=== PATIENT | female | born 1985 | race Caucasian/White ===

== ENCOUNTER 2024-03-06 13:20 | Emergency (ER) | payer OTHER, MEDICAID, SELFPAY ==
[2024-03-06 13:26] VITALS: BP 108/78; PULSE 98; RESP 16; TEMP 36.8; O2SAT 97; BMI 18.8
[2024-03-06 14:17] LABS: Add Manual Diff / Slide Review NO; Basophils Absolute Auto 100 /uL (0-100); Basophils Percent Auto 1.2 % (0-2); Eosinophils Absolute Auto 400 /uL (0-450); Eosinophils Percent Auto 3.3 % (2-4); Hematocrit 42.1 % (36-46); Hemoglobin 14.2 g/dL (12.0-16.0); Lymphocytes Absolute Auto 3200 /uL (1100-4500); Lymphocytes Percent Auto 26.1 % (25-40); Mean Corpuscular HGB Conc 33.7 % (30-36); Mean Corpuscular Hemoglobin 33.3 PG (26-34); Mean Corpuscular Volume 98.7 fL (80-100); Monocytes Absolute Auto 1400 /uL (0-900); Monocytes Percent Auto 11.4 % (3-14); Neutrophils Absolute Auto 7100 /uL (1500-7000); Platelet Count 246 X10^3/uL (150-400); Red Blood Cell Count 4.26 X10^6/uL (4.0-5.2); Red Cell Distribution Width 13.2 % (11.6-14.8); White Blood Cell Count 12.3 X10^3/uL (4.5-11.0)
[2024-03-06 14:22] LABS: Alanine Aminotransferase 13 IU/L (<35); Albumin 4.8 g/dL (3.5-5.0); Albumin Globulin Ratio 1.8 (1.0-2.8); Alkaline Phosphatase 53 U/L (38-126); Aspartate Aminotransferase 25 IU/L (14-36); Blood Urea Nitrogen 14 mg/dL (7-17); Calcium 8.7 mg/dL (8.4-10.2); Carbon Dioxide 22 mmol/L (22-32); Chloride 108 mmol/L (98-107); Estimated Glomerular Filt Rate > 60 mL/min (>60); Globulin 2.6 g/dL (1.7-4.1); Glucose 91 mg/dL (70-100); HEMOLYSIS 15 (0-50); Lipase 55 U/L (23-300); Sodium 137 mmol/L (137-145); Total Protein 7.4 g/dL (6.3-8.2)
--- NOTE | 2024-03-06 14:28 | DI.CT.S_ITS ---
PROCEDURE: CT ABDOMEN PELVIS W CON INDICATIONS: Right flank and lower abdominal pain TECHNIQUE: After the administration of intravenous contrast, axial sections acquired from the lung bases to the pubic symphysis. Coronal and sagittal reformats were performed. For radiation dose reduction, the following was used: automated exposure control, adjustment of mA and/or kV according to patient size. COMPARISON: None. FINDINGS: Image quality: Diagnostic. Lower Chest: No significant findings. ABDOMEN: Liver: No solid mass. Gallbladder: No radiopaque gallstones or wall thickening. Biliary ducts: No biliary dilation. Pancreas: No ductal dilation. Spleen: Size is within normal limits. Adrenal Glands: No adrenal nodules. Kidneys and Ureters: No hydronephrosis. No solid mass. No complex renal cystic lesion which requires follow up. Stomach and Bowel: Normal colonic caliber, without significant wall thickening. Peritoneum: No abnormal intraperitoneal fluid. No free air. Ventral Wall: No significant ventral hernia. Abdominal Nodes: No retroperitoneal or mesenteric adenopathy by size criteria. Vessels: Aorta and inferior vena cava are normal in size. Markedly dilated left gonadal vein and dilated right gonadal vein with bilateral gonadal vein reflux and extensive paraovarian and periuterine varicosities. PELVIS: Pelvic Organs: Extensive paraovarian and periuterine varicosities. Bilateral cystic adnexae. Partially collapsed hemorrhagic right ovarian cyst measuring 1.6 cm. . Bladder: No bladder wall thickening, accounting for underdistention. Pelvic Nodes: No enlarged lymph nodes. Miscellaneous: No inguinal hernias are seen. Bones: No aggressive osseous abnormality. IMPRESSION: 1. Impressive findings of dilated gonadal veins, , left greater than right with reflux giving rise to extensive paraovarian and periuterine varicosities. In certain individuals, this can be associated with the clinical syndrome of chronic pelvic venous congestion. 2. Partially collapsed right ovarian hemorrhagic cyst. 3. Normal enhancement of the kidneys. No hydronephrosis. Dictated by: Manuelito Nichole M.D. on 03/06/2024 at 15:41 Approved by: Manuelito Nichole M.D. on 03/06/2024 at 15:47
--- NOTE | 2024-03-06 14:41 | ED.ABDPAIN ---
HPI - Abdominal Pain <TEDDY Davey - Last Filed: 03/06/24 16:11> General Chief Complaint: Abdominal Pain Stated Complaint: R lower back pain, nausea Time Seen by Provider: 03/06/24 13:54 Source: patient Mode of arrival: Ambulatory History of Present Illness HPI narrative: 38-year-old female, daily smoker, presents to the emergency department with right flank pain x1 day. Patient is unsure if she injured her lower back but did notice the pain started yesterday. Mother is present in room and reports that patient had complained of lower abdominal cramping and pain that doubled her over. Patient reports that she has had many issues with abdominal pain over the years and was told that she has a ?noodle? on her appendix. Patient was told that if she ever has that type of pain again, needs to have her appendix removed. Patient also endorses that she was told to have her uterus removed several years ago, but declined. Patient denies any UTI like symptoms. Related Data Allergies Allergy/AdvReac Type Severity Reaction Status Date / Time acetaminophen [From Vicodin] AdvReac ITCHING Verified 03/06/24 13:31 hydrocodone [From Vicodin] AdvReac ITCHING Verified 03/06/24 13:31 Review of Systems <TEDDY Davey - Last Filed: 03/06/24 16:11> Review of Systems Narrative: Narrative: See HPI. GENERAL: Denies chills, fatigue, fever, sweats. HEENT: Denies sinus pain, ear pain, sore throat, difficulty swallowing, dizziness. RESPIRATORY: Denies dyspnea, cough, wheezing, sputum. CARDIOVASCULAR: Denies chest pain, palpitations, edema. GASTROINTESTINAL: Denies vomiting, diarrhea, constipation. Endorses nausea and lower abdominal pain. : Denies dysuria, frequency, incontinence, hematuria, urinary retention. Endorses right flank pain. MSK: Denies weakness, joint pain, or bony pain. SKIN: Denies rash, skin lesions, or pruritis. NEUROLOGIC: Denies weakness, dizziness, headache, numbness, confusion. PSYCHIATRIC: No concerning psychosocial issues. Patient History <TEDDY Davey - Last Filed: 03/06/24 16:11> Social History Smoking Status: Current every day smoker Smoking Status: Current every day smoker tobacco type: cigarettes Substance Use Type: marijuana Exam <TEDDY Davey - Last Filed: 03/06/24 16:11> Narrative Exam Narrative: Exam Narrative: GENERAL: This is a well-nourished, well-developed patient, in no acute distress. HEAD: Atraumatic. Normocephalic. EYES: Pupils equal round and reactive. Extraocular motions intact. No scleral icterus, injection or drainage. ENT: Nose without bleeding, purulent drainage. Airway patent. NECK: Trachea midline. No JVD or lymphadenopathy. Nontender. CARDIOVASCULAR: Regular rate and rhythm without murmurs, peripheral pulses intact, cap refill <2 sec. RESPIRATORY: Breath sounds equal and clear bilaterally. No wheezes, rales, or rhonchi. No cough. No increased respiratory effort. No accessory muscle use. GASTROINTESTINAL: Abdomen soft, mild lower abdominal tenderness, nondistended without guarding or rebound. No suprapubic pain. MSK: Moves all extremities. Normal range of motion, no clubbing or edema. Neurovascularly intact. NEURO: A&O x 3. SKIN: Warm, dry, no rashes or lesions noted. Initial Vital Signs Initial Vital Signs: Vital Signs Temperature 98.3 F 03/06/24 13:26 Pulse Rate 98 H 03/06/24 13:26 Respiratory Rate 16 03/06/24 13:26 Blood Pressure 108/78 03/06/24 13:26 Pulse Oximetry 97 03/06/24 13:26 Oxygen Delivery Method Room Air 03/06/24 13:26 Reviewed <Ishaan Rinaldi DO - Last Filed: 03/06/24 16:48> Initial Vital Signs Initial Vital Signs: Vital Signs Temperature 98.3 F 03/06/24 13:26 Pulse Rate 98 H 03/06/24 13:26 Respiratory Rate 16 03/06/24 13:26 Blood Pressure 108/78 03/06/24 13:26 Pulse Oximetry 97 03/06/24 13:26 Oxygen Delivery Method Room Air 03/06/24 13:26 Course <TEDDY Davey - Last Filed: 03/06/24 16:11> Orders Ordered: ED Orders 03/06/24 14:00 Complete Blood Count AUTO DIFF Stat Comprehensive Metabolic Panel Stat Lipase Stat 03/06/24 14:28 CT abdomen pelvis w con Stat Discontinued Medications Ondansetron HCl (Ondansetron 4 Mg/2 Ml Inj) 4 mg IV NOW PRN PRN Reason: Nausea And Vomiting Ondansetron HCl (Ondansetron 4 Mg Odt) 4 mg PO NOW PRN PRN Reason: Nausea And Vomiting Vital Signs Vital signs: Vital Signs - 8 hr 03/06/24 13:26 03/06/24 16:17 Temperature 98.3 F 98 F Pulse Rate 98 H 69 Respiratory Rate 16 16 Blood Pressure 108/78 108/56 L Pulse Oximetry 97 96 Oxygen Delivery Method Room Air Room Air <Ishaan Rinaldi DO - Last Filed: 03/06/24 16:48> Orders Ordered: ED Orders 03/06/24 14:00 Complete Blood Count AUTO DIFF Stat Comprehensive Metabolic Panel Stat Lipase Stat 03/06/24 14:28 CT abdomen pelvis w con Stat Discontinued Medications Ondansetron HCl (Ondansetron 4 Mg/2 Ml Inj) 4 mg IV NOW PRN PRN Reason: Nausea And Vomiting Ondansetron HCl (Ondansetron 4 Mg Odt) 4 mg PO NOW PRN PRN Reason: Nausea And Vomiting Vital Signs Vital signs: Vital Signs - 8 hr 03/06/24 13:26 03/06/24 16:17 Temperature 98.3 F 98 F Pulse Rate 98 H 69 Respiratory Rate 16 16 Blood Pressure 108/78 108/56 L Pulse Oximetry 97 96 Oxygen Delivery Method Room Air Room Air MDM - Abdominal Pain <TEDDY Davey - Last Filed: 03/06/24 16:11> Differential Diagnosis Differential diagnosis: Likely abdominal pain, acute appendicitis and calculus of kidney Lab Data 03/06/24 14:00 03/06/24 14:00 Labs: Lab Results 03/06/24 Range/Units 14:00 WBC 12.3 H (4.5-11.0) X10^3/uL RBC 4.26 (4.0-5.2) X10^6/uL Hgb 14.2 (12.0-16.0) g/dL Hct 42.1 (36-46) % MCV 98.7 (80-100) fL MCH 33.3 (26-34) PG MCHC 33.7 (30-36) % RDW 13.2 (11.6-14.8) % Plt Count 246 (150-400) X10^3/uL Neut % (Auto) 58.0 (50-75) % Lymph % (Auto) 26.1 (25-40) % Elliott % (Auto) 11.4 (3-14) % Eos % (Auto) 3.3 (2-4) % Baso % (Auto) 1.2 (0-2) % Neut # (Auto) 7100 H (0423-7913) /uL Lymph # (Auto) 3200 (1871-9126) /uL Elliott # (Auto) 1400 H (0-900) /uL Eos # (Auto) 400 (0-450) /uL Baso # (Auto) 100 (0-100) /uL Sodium 137 (137-145) mmol/L Potassium 4.0 (3.4-5.1) mmol/L Chloride 108 H (98-107) mmol/L Carbon Dioxide 22 (22-32) mmol/L BUN 14 (7-17) mg/dL Creatinine 0.61 (0.52-1.04) mg/dL Estimated GFR > 60 (>60) mL/min BUN/Creatinine Ratio 23.0 H (6-22) Glucose 91 (70-100) mg/dL Calcium 8.7 (8.4-10.2) mg/dL Total Bilirubin 1.0 (0.2-1.3) mg/dL AST 25 (14-36) IU/L ALT 13 (<35) IU/L Alkaline Phosphatase 53 (38-126) U/L Total Protein 7.4 (6.3-8.2) g/dL Albumin 4.8 (3.5-5.0) g/dL Globulin 2.6 (1.7-4.1) g/dL Albumin/Globulin Ratio 1.8 (1.0-2.8) Lipase 55 (23-300) U/L Point of care testing: Point of Care Testing Test Results Negative Urine Dip Bedside Urine Glucose Negative Bedside Urine Bilirubin - Negative Bedside Urine Ketone - Negative Urine Specific [place] 1.020 Bedside Urine Occult Blood - Negative Bedside Urine pH 6.0 Bedside Urine Protein - Negative Bedside Urine Urobilinogen - Negative Bedside Urine Nitrite - Negative Bedside Urine Leukocytes - Negative Esterase Imaging Data CT scan - abdomen/pelvis: Radiologist's Impression: Close Abdomen/Pelvis CT (Signed) Manuelito Nichole - 07/18/24 Launch?[address] [address] [address] Scan Report Signed Patient: Alexandro Hermosillo MR#: [id number] : 1985 Acct:[id number] Age/Sex: 38 / F Date of Service: 03/06/24 Loc: ED Accession Number: [id number] Procedure: CT abdomen pelvis w con Ordering Provider: Ishaan Rothman PROCEDURE: CT ABDOMEN PELVIS W CON INDICATIONS: Right flank and lower abdominal pain TECHNIQUE: After the administration of intravenous contrast, axial sections acquired from the lung bases to the pubic symphysis. Coronal and sagittal reformats were performed. For radiation dose reduction, the following was used: automated exposure control, adjustment of mA and/or kV according to patient size. COMPARISON: None. FINDINGS: Image quality: Diagnostic. Lower Chest: No significant findings. ABDOMEN: Liver: No solid mass. Gallbladder: No radiopaque gallstones or wall thickening. Biliary ducts: No biliary dilation. Pancreas: No ductal dilation. Spleen: Size is within normal limits. Adrenal Glands: No adrenal nodules. Kidneys and Ureters: No hydronephrosis. No solid mass. No complex renal cystic lesion which requires follow up. Stomach and Bowel: Normal colonic caliber, without significant wall thickening. Peritoneum: No abnormal intraperitoneal fluid. No free air. Ventral Wall: No significant ventral hernia. Abdominal Nodes: No retroperitoneal or mesenteric adenopathy by size criteria. Vessels: Aorta and inferior vena cava are normal in size. Markedly dilated left gonadal vein and dilated right gonadal vein with bilateral gonadal vein reflux and extensive paraovarian and periuterine varicosities. PELVIS: Pelvic Organs: Extensive paraovarian and periuterine varicosities. Bilateral cystic adnexae. Partially collapsed hemorrhagic right ovarian cyst measuring 1.6 cm. . Bladder: No bladder wall thickening, accounting for underdistention. Pelvic Nodes: No enlarged lymph nodes. Miscellaneous: No inguinal hernias are seen. Bones: No aggressive osseous abnormality. IMPRESSION: 1. Impressive findings of dilated gonadal veins, , left greater than right with reflux giving rise to extensive paraovarian and periuterine varicosities. In certain individuals, this can be associated with the clinical syndrome of chronic pelvic venous congestion. 2. Partially collapsed right ovarian hemorrhagic cyst. 3. Normal enhancement of the kidneys. No hydronephrosis. Dictated by: Manuelito Nichole M.D. on 03/06/2024 at 15:41 Approved by: Manuelito Nichole M.D. on 03/06/2024 at 15:47 MDM Narrative Medical decision making narrative: 38-year-old female with right flank and lower abdominal pain. Assessment was not overly concerning. HCG was negative and urine was not consistent with UTI. Labs were within normal limits. 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 Discussed case with Dr. Rinaldi of the ED. Will place a referral for OBGYN and instructed patient to schedule an appointment with a OBGYN immediately. Discussed plan of care and return precautions with patient and mother, who verbalized understanding and were agreeable with course of action. <Ishaan Rinaldi, DO - Last Filed: 03/06/24 16:48> Lab Data Labs: Lab Results 03/06/24 Range/Units 14:00 WBC 12.3 H (4.5-11.0) X10^3/uL RBC 4.26 (4.0-5.2) X10^6/uL Hgb 14.2 (12.0-16.0) g/dL Hct 42.1 (36-46) % MCV 98.7 (80-100) fL MCH 33.3 (26-34) PG MCHC 33.7 (30-36) % RDW 13.2 (11.6-14.8) % Plt Count 246 (150-400) X10^3/uL Neut % (Auto) 58.0 (50-75) % Lymph % (Auto) 26.1 (25-40) % Elliott % (Auto) 11.4 (3-14) % Eos % (Auto) 3.3 (2-4) % Baso % (Auto) 1.2 (0-2) % Neut # (Auto) 7100 H (5412-6845) /uL Lymph # (Auto) 3200 (7629-7757) /uL Elliott # (Auto) 1400 H (0-900) /uL Eos # (Auto) 400 (0-450) /uL Baso # (Auto) 100 (0-100) /uL Sodium 137 (137-145) mmol/L Potassium 4.0 (3.4-5.1) mmol/L Chloride 108 H (98-107) mmol/L Carbon Dioxide 22 (22-32) mmol/L BUN 14 (7-17) mg/dL Creatinine 0.61 (0.52-1.04) mg/dL Estimated GFR > 60 (>60) mL/min BUN/Creatinine Ratio 23.0 H (6-22) Glucose 91 (70-100) mg/dL Calcium 8.7 (8.4-10.2) mg/dL Total Bilirubin 1.0 (0.2-1.3) mg/dL AST 25 (14-36) IU/L ALT 13 (<35) IU/L Alkaline Phosphatase 53 (38-126) U/L Total Protein 7.4 (6.3-8.2) g/dL Albumin 4.8 (3.5-5.0) g/dL Globulin 2.6 (1.7-4.1) g/dL Albumin/Globulin Ratio 1.8 (1.0-2.8) Lipase 55 (23-300) U/L Point of care testing: Point of Care Testing Test Results Negative Urine Dip Bedside Urine Glucose Negative Bedside Urine Bilirubin - Negative Bedside Urine Ketone - Negative Urine Specific [place] 1.020 Bedside Urine Occult Blood - Negative Bedside Urine pH 6.0 Bedside Urine Protein - Negative Bedside Urine Urobilinogen - Negative Bedside Urine Nitrite - Negative Bedside Urine Leukocytes - Negative Esterase Discharge Plan Departure Patient Disposition: Home Clinical Impression: Abdominal pain Qualifiers: Abdominal location: lower abdomen, unspecified Qualified Code(s): R10.30 - Lower abdominal pain, unspecified Instructions: DI for Abdominal Pain-Adult Activity Restrictions/Additional Instructions: *You have been diagnosed with abdominal pain. My assessment was encouraging and your labs were within normal limits. The CT did reveal a concern for clinical syndrome of chronic pelvic venous congestion. It is recommended that you follow up with a OBGYN as quickly as possible. I have placed a referral for you, since you do not have a OBGYN at this time. *What to do: *Please continue to take your regular medications as directed. [ ] New medication prescriptions sent to your pharmacy: [ ] [ ] New medication written as a paper prescription [x ] No new medications given *Please follow up with your primary care provider in 2-3 days, call for an appointment. Let them know you were seen in the Emergency Department and that we ask that you be seen in follow up. We will electronically transmit a record of today's note if your PCP is in our system *If you do not have a primary care provider please contact the [facility] Resource line at [phone]. They will ask some questions about your medical history and help get you set up with a doctor in the community. ? Return to ER if you should have any new, worsening or concerning symptoms, such as worsening pain, severe headache, confusion, chest pain, difficulty breathing, fever greater than 101 F, shaking chills, persistent vomiting to the point that you cannot drink fluids, or other new or worsening symptoms. 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 ) Stand Alone Forms: Patient Portal/API ED Sign-out <Ishaan Rinaldi DO - Last Filed: 03/06/24 16:48> Cosign ED Attending Cosignature Attestation: Dr Rinaldi Co-Sign Statement: I was available for consultation during this patient's emergency department visit. This chart is signed by myself for administrative purposes only. I did not have direct contact with this patient during this visit. They were seen independently by the APC.
[2024-03-06 16:17] VITALS: BP 108/56; PULSE 69; RESP 16; TEMP 36.6; O2SAT 96
== END 2024-03-06 16:18 | disposition home or self-care (01) ==
PROVIDERS: Emergency Medicine; Emergency Provider Registered Nurse
DX: R10.30 Lower abdominal pain, unspecified (principal); R79.89 Other specified abnormal findings of blood chemistry
CPT/HCPCS: 36415; 74177; 80053; 81003; 81025; 83690; 85025; 99284; Q9967